=== PATIENT | female | born 2000 | race Caucasian/White ===

== ENCOUNTER 2022-11-08 14:24 | Emergency (ER) | payer OTHER ==
[~2022-11-08] VITALS: Ht 180.3 cm; Wt 101.6 kg
[2022-11-08 15:11] VITALS: BP_SYST 141; PULSE 85; RESP 18; TEMP 98.3; O2SAT 98
--- NOTE | 2022-11-08 15:15 | NUR ---
Patient BIB from urgent care by parents. Chief Complaint: RLQ abdominal pain x 4d described as shooting intermittent sharp pain with nausea. Patient a&ox4 and stable. Placed on monitor in bed 4 with bed rails up and parents at bed side. Patient denies allergies.
--- NOTE | 2022-11-08 15:30 | NUR ---
HCG NEGATIVE, Urine specimen taken to lab
[2022-11-08] MEDS ORDERED: KETOROLAC TROMETHAMINE 60 MG/2 ML VIAL IM ONE (15:45)
[2022-11-08] MEDS ORDERED: ONDANSETRON 4 MG ODT TAB PO ONE (15:45)
[2022-11-08 15:58] LABS: BILIRUBIN,URINE NEGATIVE (NEGATIVE); BLOOD, URINE NEGATIVE (NEGATIVE); COLOR,URINE YELLOW (YELLOW); GLUCOSE,URINE NEGATIVE (NEGATIVE); KETONES,URINE 1+ (NEGATIVE); LEUKOCYTE ESTERASE ,URINE 2+ (NEGATIVE); NITRITE, URINE NEGATIVE (NEGATIVE); PROTEIN URINE NEGATIVE (NEGATIVE); UROBILINOGEN,URINE 0.2 (0.2-1.0)
[2022-11-08 16:01] LABS: CLARITY/URINE HAZY (CLEAR)
[2022-11-08 16:06] LABS: BASOPHILS % (AUTO) 0.3 % (0.0-2.0); EOSINOPHILS % (AUTO) 0.1 % (0.0-4.0); HEMATOCRIT 42.4 % (36-48); HEMOGLOBIN 14.1 g/dL (12.0-16.0); LYMPHOCYTES # (AUTO) 1.3 K/uL (1.0-5.5); MEAN CORPUSCULAR HEMOGLOBIN 30 pg (27-31); MEAN CORPUSCULAR HGB CONC 33 % (32-36); MEAN CORPUSCULAR VOLUME 89 fL (79.0-98.0); MONOCYTES # (AUTO) 0.4 K/uL (0.0-1.0); MONOCYTES % (AUTO) 9.1 % (1.7-9.3); NEUTROPHILS # (AUTO) 2.8 K/uL (1.8-7.7); NEUTROPHILS % (AUTO) 61.5 % (40.0-70.0); PLATELET COUNT (AUTO) 286 K/uL (130-430); RED BLOOD CELL COUNT(AUTO) 4.74 MIL/uL (4.2-6.2); WHITE BLOOD COUNT (AUTO) 4.5 K/uL (4.8-10.8)
[2022-11-08 16:06] LABS: BACTERIA,URINE FEW /HPF (None Seen); RBC,URINE 0-3 /HPF (0-3)
[2022-11-08 16:07] LABS: MUCUS,URINE 1+ /LPF (None Seen)
[2022-11-08 16:20] LABS: CALCIUM 9.2 mg/dL (8.4-11.0); CREATININE 0.81 mg/dL (0.55-1.30)
[2022-11-08 16:24] LABS: TOTAL BILIRUBIN 0.3 mg/dL (0.0-1.0)
--- NOTE | 2022-11-08 17:30 | NUR ---
Patient taken to CT scan
[2022-11-08] MEDS ORDERED: cefTRIAXone 1 GM VIAL IM ONE (18:45)
[2022-11-08] MEDS ORDERED: ONDA-8 TL (19:08)
[2022-11-08] MEDS ORDERED: IBUP-1971 PO (19:08)
[2022-11-08] MEDS ORDERED: SULF1TAB48 PO (19:08)
--- NOTE | 2022-11-08 19:18 | NUR ---
Report given to PETAR Montelongo
[2022-11-08 20:02] VITALS: BP_SYST 124; PULSE 88; RESP 16; TEMP 98.4; O2SAT 98
--- NOTE | 2022-11-08 20:06 | NUR ---
Patient given written and verbal discharge instructions and verbalizes understanding. ER MD DIETRICH discussed with patient the results and treatment provided. Patient in stable condition. ID arm band removed. IV catheter removed intact and dressing applied, no active bleeding. Rx of ZOFRAN AND MOTRIN given. Patient educated on pain management and to follow up with PMD. Pain Scale . Opportunity for questions provided and answered. Medication side effect fact sheet provided.
== END 2022-11-08 20:03 | disposition home or self-care (01) ==
LOC: SED 14:24
DX: N12 Tubulo-interstitial nephritis, not specified as acute or chronic (principal); R10.31 Right lower quadrant pain; R11.0 Nausea; Z79.899 Other long term (current) drug therapy
CPT/HCPCS: 99285; 74176; 80053; 81000; 84703; 83690; 85025; 87086; 36415; 76376; 81025; 96372; Q0162; J0696; J1885